=== PATIENT | male | born 1975 | race African-American/Black ===

== ENCOUNTER 2018-04-25 15:28 | Inpatient (IN) | payer SELFPAY ==
[~2018-04-25 15:28] MED LIST: Iopamidol 370 76% 100 ML VIAL ONE; Iopamidol 370 76% 50 ML VIAL FS ONE
[2018-04-25] MEDS ORDERED: Atropine Sulfate 1 mg/10 ml Syringe ONE (15:35)
[2018-04-25] MEDS ORDERED: DOPamine 400 MG/D5W 250 ML 0 ML ONE (15:35)
[2018-04-25] MEDS ORDERED: Adenosine 6 MG/2 ML VIAL ONE (16:04)
[2018-04-25] MEDS ORDERED: Nitroglycerin 0.4 MG TAB (25 Tab Bottle) SL PRN (16:26)
[2018-04-25] MEDS ORDERED: traMADol HCl 50 MG TAB PO PRN (16:26)
[2018-04-25] MEDS ORDERED: Morphine 4 MG/ML VIAL SLOW IVP PRN (16:26)
[2018-04-25] MEDS ORDERED: Acetaminophen/Codeine 30-300mg Tablet PO PRN (16:26)
[2018-04-25] MEDS ORDERED: Mag-Al 1200 mg/1200 mg/30 ML UDCUP PO PRN (16:26)
[2018-04-25] MEDS ORDERED: Zolpidem Tartrate 5 MG TAB PO PRN (16:26)
[2018-04-25] MEDS ORDERED: Milk Of Magnesia 30 ML UDCUP PO PRN (16:26)
[2018-04-25] MEDS ORDERED: Sodium Chloride 0.9% 1,000 ML IV SCH (16:30)
[2018-04-25 16:45] VITALS: BMI 28.8
--- NOTE | 2018-04-25 17:39 | HP ---
CHIEF COMPLAINT: Chest pain. HISTORY OF PRESENT ILLNESS: Mr. Love is a pleasant 43-year-old gentleman, who comes to the hospital air flighted from the [facility] ER for an inferior ST-elevation NE. He started having chest pain at 02:00 a.m. yesterday, presented to the [place] ER at 02:00 p.m., about 12 hours had gone by. His troponin was already at 11, but he was having ongoing chest pain 10/10 per his report with ST elevations in the inferior leads with reciprocal changes. He was air flighted to [facility] and taken immediately to the catheterization lab, where he was found to have an occluded left circumflex. This was wired and successfully stented with bare-metal stent. His pain improved immediately and he did well with the procedure. Angio-Seal was placed in his right femoral artery. He is having normal pain now. PAST MEDICAL HISTORY: None. SOCIAL HISTORY: Former smoker, smoked about half-a-pack a day for several years. He quit a month ago as his father recently of lung cancer. Social alcohol use. No drug use. FAMILY HISTORY: Mother of an NE at age 48. Father of lung cancer recently at age 65. He has 2 children and 1 grandkid, [address] on the way as well. PAST SURGICAL HISTORY: None. OUTPATIENT MEDICATIONS: None. ALLERGIES: NO KNOWN DRUG ALLERGIES. REVIEW OF SYSTEMS: A 12-point review of systems was done and was found to be negative unless stated in the history of present illness. PHYSICAL EXAMINATION: VITAL SIGNS: Temperature 97.2, pulse 80, respiratory rate 16, saturating 98% on 2 L nasal cannula. GENERAL: Awake, alert, oriented x3. No distress. HEENT: Normocephalic, atraumatic. NECK: Supple. LUNGS: Clear. CARDIOVASCULAR: S1 and S2. No S3 or S4. No murmurs. ABDOMEN: Soft. Positive bowel sounds. EXTREMITIES: No edema. SKIN: Warm and dry. LABORATORY DATA: Reviewed. DIAGNOSTIC DATA: EKG was reviewed. Chest x-ray was reviewed. ASSESSMENT AND PLAN: 1. Inferior ST-elevation myocardial infarction, status post bare-metal stenting to an LPL, big OM2 that goes all the way down to an LPL. Still residual disease and a bifurcating lesion, however, this is distal and a very small artery, not amenable to interventions. 2. Significant family history. PLAN: 1. Admit to ICU. 2. Brilinta, aspirin, and high-dose statin for now. 3. Beta john and SOL inhibitor depending on how blood pressure allows in the next two days. Borderline low at this time. 4. Echocardiogram pending. 5. Full code. 6. Disposition; pending clinical evolution. Job ID: [id number]
[2018-04-25 18:03] LABS: CKMB 4.2 ng/mL (0-6.6)
[2018-04-25 18:07] LABS: Troponin I 14.986 ng/mL (< 0.028)
[2018-04-25] MEDS: Atorvastatin Calcium 40 MG TAB PO SCH (20:08)
[2018-04-25] MEDS: TICAGRELOR 90 MG TABLET PO SCH (20:09)
[2018-04-25 23:04] LABS: CKMB 5.1 ng/mL (0-6.6)
[2018-04-25 23:06] LABS: Critical Call Chem Troponin I RESULT DECREASING; Troponin I 14.493 ng/mL (< 0.028)
[2018-04-26 05:36] LABS: #Lymphocytes 1.7 thou/uL (1.20-3.40); #Monocytes 1.3 thou/uL (0.11-0.59); #Neutrophils 8.2 thou/uL (1.40-6.50); %Basophils 0.2 % (0.0-1.0); %Eosinophils 0.2 % (0.0-10.0); %Lymphocytes 15.2 % (21.0-51.0); %Monocytes 11.8 % (0.0-10.0); %Neutrophils 72.8 % (42.0-75.0); Mean Corpuscular HGB CONC 33.8 g/dL (32.0-36.0); Mean Corpuscular Hemoglobin 31.2 pg (27.0-31.0); Mean Corpuscular Volume 92.5 fL (78.0-98.0); Mean Platelet Volume 6.9 fL (7.4-10.4); Platelet Count 452 thou/uL (130-400); RBC Distribution Width 12.7 % (11.5-14.5); Red Blood Cell (RBC) Count 4.47 mill/uL (4.70-6.10); White Blood Cell (WBC) Count 11.3 thou/uL (4.8-10.8)
[2018-04-26 06:10] LABS: Anion Gap 16 mmol/L (10-20); Chloride 98 mmol/L (98-107); Sodium 137 mmol/L (136-145)
[2018-04-26 06:13] LABS: ALT (SGPT) 15 U/L (8-55); AST (SGOT) 29 U/L (5-34); Albumin 3.6 g/dL (3.5-5.0); Alkaline Phosphatase 52 U/L (40-150); BUN (Urea Nitrogen) 9 mg/dL (8.9-20.6); Bilirubin, Total 1.4 mg/dL (0.2-1.2); Calc. Creatinine Clearance 130 mL/min (70-130); Calcium 9.3 mg/dL (7.8-10.44); Carbon Dioxide 25 mmol/L (22-29); Cardiac Risk 5.5 (Less than 4.5); Cholesterol 219 mg/dl (< 200 Desired); Estimated GFR-MDRD Greater than 90; Globulin 3.6 g/dL (2.4-3.5); Glucose 112 mg/dL (70-105); HDL Cholesterol 40 mg/dL (>60 Neg Risk); LDL Cholesterol, Calculated 141 mg/dL; Potassium 2.7 mmol/L (3.5-5.1); Protein, Total 7.2 g/dL (6.0-8.3); Triglycerides 188 mg/dL (Less than 150)
[2018-04-26 06:16] LABS: Free T4 (Free Thyroxine) 1.08 ng/dL (0.70-1.48)
[2018-04-26] MEDS: Potassium Chloride 20 MEQ TAB PO SCH ×2 (09:20→12:22)
[2018-04-26] MEDS: Aspirin Chewable 81 MG TAB PO SCH (09:26)
[2018-04-26] MEDS: TICAGRELOR 90 MG TABLET PO SCH ×2 (10:16→21:12)
--- NOTE | 2018-04-26 11:42 | PDOC.CTH ---
Cardiology Progress Note - Subjective Doing well. No chest pain. - Objective Vital Signs Temp Pulse Ox 04/26/18 08:00 99.2 F 97 04/26/18 07:00 99.2 F 04/26/18 04:00 98.5 F 04/26/18 00:00 98.6 F Weight 173 lb 4.533 oz 04/25/18 04/26/18 04/27/18 06:59 06:59 06:59 Intake Total 1557 300 Output Total 600 540 Balance 957 -240 - Physical Examination General/Neuro: alert & oriented x3, NAD Neck: no JVD present Lungs: CTA, unlabored respirations Heart: RRR Abdomen: NT/ND Extremities: other: (no edema) - Telemetry Telemetry Rhythm: NSR - Labs Result Diagrams: 04/26/18 04:32 04/26/18 04:32 Troponin/CKMB CK-MB (CK-2) 5.1 ng/mL (0-6.6) 04/25/18 22:33 Troponin I 14.493 ng/mL (< 0.028) H* 04/25/18 22:33 - Assessment/Plan 1. Inferior STEMI 2. Ischemic CM EF at 45%. 3. S/P BMS to LCx/OM2 PLAN: - Continue NANCI with brilinta and aspirin - Will start very low dose BB see if his BP will tolerate this. - No ACEI due to borderline low BP. - Continue high dose statin. - Replace K.
--- NOTE | 2018-04-26 12:54 | CON ---
DATE OF CONSULTATION: HISTORY OF PRESENT ILLNESS: Lei Love is a pleasant 43-year-old gentleman, who presented with chest pain to the ER. No prior history of any chest pain, shortness of breath, or cough. EKG showed ST-segment elevation in his anterior leads. PAST MEDICAL HISTORY: Otherwise, unremarkable . PAST SURGICAL HISTORY: None. SOCIAL HISTORY: Alcohol, minimal. Tobacco, half pack a day. 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 REVIEW OF SYSTEMS: Otherwise, unremarkable. FAMILY HISTORY: Unremarkable. PHYSICAL EXAMINATION: VITAL SIGNS: His post cath in the ICU, blood pressure 121/84, sats are 96% on room air, respirations 20, and temperature 99. CHEST: No wheezing or crackles. CARDIAC: Normal S1 and S2. No gallops. ABDOMEN: No masses. LABORATORY DATA: White count 11,000, H and H are 14 and 41, and platelet count is normal. Lytes are normal. Potassium 2.7. Troponin is elevated. BNP is normal. Cholesterol is elevated at 219, triglyceride 188. IMAGING DATA: Chest x-ray showed no acute infiltrates. IMPRESSION: 1. Acute coronary syndrome, status post cardiac cath with multiple stents. 2. Tobacco abuse. PLAN: Disposition as per Cardiology. Pulmonary/Critical Care will follow in the ICU. He is advised to refrain from smoking. This is a consultation note, 70 minutes, 50% direct patient care. Job ID: [id number]
--- NOTE | 2018-04-26 18:12 | EKG ---
Test Reason : Blood Pressure : / mmHG Vent. Rate : 090 BPM Atrial Rate : 090 BPM P-R Int : 138 ms QRS Dur : 072 ms QT Int : 368 ms P-R-T Axes : 038 017 035 degrees QTc Int : 450 ms Normal sinus rhythm Inferior infarct , possibly acute Lateral injury pattern * ACUTE OH * Abnormal ECG No previous ECGs available Confirmed by DR. Petty DIETZ ([id number]) on 04/26/2018 6:11:42 PM Referred By: LUISITO Confirmed By:DR. Petty DIETZ
--- NOTE | 2018-04-26 18:30 | EKG ---
Test Reason : Blood Pressure : / mmHG Vent. Rate : 094 BPM Atrial Rate : 094 BPM P-R Int : 140 ms QRS Dur : 078 ms QT Int : 362 ms P-R-T Axes : 037 017 052 degrees QTc Int : 452 ms Normal sinus rhythm Inferior infarct (cited on or before 25-APR-2018) Lateral injury pattern ACUTE OR / STEMI Abnormal ECG When compared with ECG of 25-APR-2018 17:47, (Unconfirmed) Serial changes of evolving Inferior infarct Present Confirmed by DR. Petty DIETZ ([id number]) on 04/26/2018 6:29:40 PM Referred By: LUISITO Confirmed By:DR. Petty DIETZ
[2018-04-26] MEDS: Atorvastatin Calcium 40 MG TAB PO SCH (21:11)
[2018-04-27 06:19] LABS: Anion Gap 14 mmol/L (10-20); BUN (Urea Nitrogen) 11 mg/dL (8.9-20.6); Calc. Creatinine Clearance 135 mL/min (70-130); Calcium 9.5 mg/dL (7.8-10.44); Carbon Dioxide 22 mmol/L (22-29); Chloride 104 mmol/L (98-107); Estimated GFR-MDRD Greater than 90; Glucose 97 mg/dL (70-105); Potassium 3.4 mmol/L (3.5-5.1); Sodium 137 mmol/L (136-145)
[2018-04-27 06:21] LABS: #Lymphocytes 1.7 thou/uL (1.20-3.40); #Neutrophils 6.4 thou/uL (1.40-6.50); %Basophils 0.2 % (0.0-1.0); %Eosinophils 0.4 % (0.0-10.0); %Lymphocytes 18.3 % (21.0-51.0); %Monocytes 10.9 % (0.0-10.0); %Neutrophils 70.1 % (42.0-75.0); Hemoglobin 14.2 g/dL (14.0-18.0); Mean Corpuscular HGB CONC 33.5 g/dL (32.0-36.0); Mean Corpuscular Hemoglobin 31.1 pg (27.0-31.0); Mean Corpuscular Volume 92.7 fL (78.0-98.0); Mean Platelet Volume 6.8 fL (7.4-10.4); Platelet Count 487 thou/uL (130-400); RBC Distribution Width 12.4 % (11.5-14.5); Red Blood Cell (RBC) Count 4.57 mill/uL (4.70-6.10); White Blood Cell (WBC) Count 9.1 thou/uL (4.8-10.8)
[2018-04-27] MEDS: Aspirin Chewable 81 MG TAB PO SCH (09:20)
[2018-04-27] MEDS: TICAGRELOR 90 MG TABLET PO SCH (09:20)
--- NOTE | 2018-04-27 09:41 | PRG ---
DATE OF SERVICE: 04/27/2018 SUBJECTIVE: Lei Love is a 43-year-old gentleman. This morning, no chest pain, no shortness of breath. OBJECTIVE: VITAL SIGNS: Blood pressure 170/84, sats 96, respiratory rate 20, pulse 80. CHEST: Decreased breath sounds. No wheezing. CARDIAC: Normal S1, S2. No gallops or masses. LABORATORY DATA: Lytes are normal. IMPRESSION: Status post myocardial infarction, emergent cardiac cath with multiple stents, inferior myocardial infarction, tobacco abuse. PLAN: Disposition as per Cardiology. Pulmonary will follow while in the ICU. Job ID: [id number]
--- NOTE | 2018-04-27 14:08 | DIS ---
DATE OF ADMISSION: 04/25/2018 DATE OF DISCHARGE: 04/27/2018 DISCHARGING PHYSICIAN: Stu Medina MD. PRIMARY DIAGNOSIS: 1. Inferolateral ST-elevation. 2. Ischemic cardiomyopathy, EF at 40% to 45%. HOSPITAL COURSE: Mr. Love is a 43-year-old gentleman,, who came to the hospital for chest pain. He was found to have an inferolateral ST-elevation DE. He was taken emergently to the catheterization lab, where he was found to have an occluded left circumflex. This was wired and stented successfully with a bare-metal stent. He was started on Brilinta and did well postoperatively. His pain was better almost immediately. He currently denies any chest pain, tightness, or pressure. No arrhythmias. Echocardiogram showed EF at 40% to 45%. without significant valvular abnormalities. He has been quite stable pain-free without any issues. He is stable for discharge at this time. We will plan on discharging home on Plavix. DISCHARGE MEDICATIONS: 1. Plavix 75 mg a day. 2. Aspirin 81 mg a day. 3. Nitroglycerin sublingual 0.4 mg p.r.n. chest pain. 4. Atorvastatin 80 mg at bedtime. 5. Lisinopril 2.5 mg half a tablet a day. 6. Metoprolol tartrate 25 mg half a tablet twice a day. FOLLOWUP APPOINTMENTS: 1. With myself in 1 month. 2. With primary care doctor in 2 weeks. Over 30 minutes was spent at bedside counseling for discharge. Job ID: [id number]
[2018-04-27 14:52] VITALS: TEMP 98.4
[2018-04-27 16:26] VITALS: BP 121/77
[2018-04-28] MEDS ORDERED: Lisinopril 2.5 MG TAB PO SCH (09:00)
[2018-04-28] MEDS ORDERED: Clopidogrel Bisulfate 75 MG TAB PO SCH (09:00)
== END 2018-04-27 15:25 | disposition home or self-care (01) | DRG 249 ==
LOC: ERS 15:28 → SDC 15:32 → CCU 16:52
PROVIDERS: ADMIT Internal Medicine Cardiovascular Disease; ATTEND Internal Medicine Cardiovascular Disease
PROC: 02703DZ Dilation of Coronary Artery, One Artery with Intraluminal Device, Percutaneous Approach (ICD-10-PCS; principal; 2018-04-25)
PROC: 4A023N7 Measurement of Cardiac Sampling and Pressure, Left Heart, Percutaneous Approach (ICD-10-PCS; 2018-04-25)
PROC: B2111ZZ Fluoroscopy of Multiple Coronary Arteries using Low Osmolar Contrast (ICD-10-PCS; 2018-04-25)
DX: I21.19 ST elevation (STEMI) myocardial infarction involving other coronary artery of inferior wall (principal); I25.5 Ischemic cardiomyopathy; F17.210 Nicotine dependence, cigarettes, uncomplicated
CPT/HCPCS: 36415; 80048; 80053; 80061; 82553; 83880; 84439; 84443; 85025; 85347; 92941; 93005; 93010; 93306; 93458; 93798; C1725; C1760; C1769; C1876; C1887; J0153; J0461; J1265; J2270; Q9967

== ENCOUNTER 2019-03-31 12:38 | Observation (INO) | payer OTHER, SELFPAY ==
[2019-03-31 13:47] LABS: #Eosinphils 0.1 thou/uL (0.0-0.7); #Lymphocytes 1.4 thou/uL (1.20-3.40); #Monocytes 0.5 thou/uL (0.11-0.59); #Neutrophils 2.2 thou/uL (1.40-6.50); %Basophils 1.1 % (0.0-1.0); %Eosinophils 1.3 % (0.0-10.0); %Lymphocytes 33.5 % (21.0-51.0); %Monocytes 12.3 % (0.0-10.0); %Neutrophils 51.8 % (42.0-75.0); Mean Corpuscular HGB CONC 36.1 g/dL (32.0-36.0); Mean Corpuscular Hemoglobin 32.2 pg (27.0-31.0); Mean Corpuscular Volume 89.4 fL (78.0-98.0); Mean Platelet Volume 7.3 fL (7.4-10.4); Platelet Count 293 thou/uL (130-400); RBC Distribution Width 12.3 % (11.5-14.5); Red Blood Cell (RBC) Count 4.34 mill/uL (4.70-6.10); White Blood Cell (WBC) Count 4.2 thou/uL (4.8-10.8)
--- NOTE | 2019-03-31 13:54 | RAD ---
Portable frontal chest radiograph: 03/31/2019 COMPARISON: 04/25/2018 HISTORY: Chest pain FINDINGS: Lungs are clear. Heart and mediastinal contours appear within normal limits. IMPRESSION: No acute findings.
[2019-03-31 14:09] LABS: Anion Gap 11 mmol/L (10-20); BUN (Urea Nitrogen) 11 mg/dL (8.9-20.6); Carbon Dioxide 29 mmol/L (22-29); Chloride 104 mmol/L (98-107); Potassium 3.9 mmol/L (3.5-5.1); Sodium 140 mmol/L (136-145)
[2019-03-31 14:10] LABS: ALT (SGPT) 16 U/L (8-55); AST (SGOT) 16 U/L (5-34); Albumin 4.2 g/dL (3.5-5.0); Alkaline Phosphatase 71 U/L (40-110); Bilirubin, Total 0.9 mg/dL (0.2-1.2); CK (CPK) 84 U/L (30-200); Calc. Creatinine Clearance 0 mL/min (70-130); Calcium 9.3 mg/dL (7.8-10.44); Estimated GFR-MDRD Greater than 90; Globulin 3.1 g/dL (2.4-3.5); Glucose 91 mg/dL (70-105); Lipase 20 U/L (8-78); Protein, Total 7.3 g/dL (6.0-8.3)
[2019-03-31] MEDS ORDERED: Nitroglycerin 2% Ointment 1 INCH/1 GM Packet ONE (15:07)
[2019-03-31] MEDS ORDERED: Nitroglycerin 0.4 MG TAB (25 Tab Bottle) SL PRN (16:21)
[2019-03-31] MEDS ORDERED: Lisinopril 5 MG TAB PO SCH (16:45)
[2019-03-31 17:48] VITALS: BMI 31.3
[2019-03-31 17:54] LABS: Troponin I Less than 0.010 ng/mL (< 0.028)
[2019-03-31] MEDS: Acetaminophen 325 MG TAB PO PRN (19:48)
[2019-03-31] MEDS: Heparin 5,000 UNITS/ML VIAL SC SCH (19:49)
--- NOTE | 2019-03-31 19:49 | PDOC.HHP ---
Hospitalist Results - Labs Result Diagrams: 03/31/19 13:36 03/31/19 13:36 Lab results: WBC 4.2 thou/uL (4.8-10.8) L 03/31/19 13:36 Hgb 14.0 g/dL (14.0-18.0) 03/31/19 13:36 Hct 38.8 % (42.0-52.0) L 03/31/19 13:36 MCV 89.4 fL (78.0-98.0) 03/31/19 13:36 Plt Count 293 thou/uL (130-400) 03/31/19 13:36 Neutrophils % 51.8 % (42.0-75.0) 03/31/19 13:36 Sodium 140 mmol/L (136-145) 03/31/19 13:36 Potassium 3.9 mmol/L (3.5-5.1) 03/31/19 13:36 Chloride 104 mmol/L (98-107) 03/31/19 13:36 Carbon Dioxide 29 mmol/L (22-29) 03/31/19 13:36 BUN 11 mg/dL (8.9-20.6) 03/31/19 13:36 Creatinine 0.87 mg/dL (0.7-1.3) 03/31/19 13:36 Glucose 91 mg/dL (70-105) 03/31/19 13:36 Calcium 9.3 mg/dL (7.8-10.44) 03/31/19 13:36 Total Bilirubin 0.9 mg/dL (0.2-1.2) 03/31/19 13:36 AST 16 U/L (5-34) 03/31/19 13:36 ALT 16 U/L (8-55) 03/31/19 13:36 Alkaline Phosphatase 71 U/L (40-110) 03/31/19 13:36 Creatine Kinase 84 U/L (30-200) 03/31/19 13:36 Troponin I Less than 0.010 ng/mL (< 0.028) 03/31/19 17:21 B-Natriuretic Peptide 72.9 pg/mL (0-100) 03/31/19 13:36 Serum Total Protein 7.3 g/dL (6.0-8.3) 03/31/19 13:36 Albumin 4.2 g/dL (3.5-5.0) 03/31/19 13:36 Lipase 20 U/L (8-78) 03/31/19 13:36 Hospitalist H&P A/P - Problem (1) Atypical chest pain Code(s): R07.89 - OTHER CHEST PAIN Status: Acute (2) Presence of stent in coronary artery in patient with coronary artery disease Code(s): I25.10 - ATHSCL HEART DISEASE OF [place] CORONARY ARTERY W/O ANG PCTRS; Z95.5 - PRESENCE OF CORONARY ANGIOPLASTY IMPLANT AND GRAFT Status: Acute - Plan Plan: #atypical chest pain -substernal pressure; however no associated with exertion and not relieved by rest/nitroglycerin; reproducible on exam -HD stable, EKG showing inferior q waves with no signs of new ischemia; trop x 1 negative #CAD s/p stent x 3 -on aspirin and plavix; lisinopril, beta john -Dr. Medina is patient's ledge man #dispo/PPX code: full code GI PPX: no indication DVT PPX: heparin subq Plan: -continue to trend trop; if chest pain becomes more typical, obtain another EKG -acetaminphen PRN musculoskeletal pain -continue home medications
[2019-03-31 20:33] LABS: Troponin I Less than 0.010 ng/mL (< 0.028)
[2019-03-31] MEDS ORDERED: Atorvastatin Calcium 40 MG TAB PO SCH (21:00)
--- NOTE | 2019-03-31 23:25 | PDOC.HHP ---
Hospitalist HPI - History of Present Illness chest pressure for 3 days History of Present Illness: 44yo M w/ MHx of CAD s/p stent placement x 3 presents to the ED from incarceration for chest pain. Started suddenly 3 days ago while at rest, substernal pressure, continuous, not relieved by nitroglycerin. Similar to chest pain he had during previous heart attack. Endorses adherence to medications except plavix and aspirin for 3 weeks that were restarted 3 days ago due to unavailability at facility. Has no other complaints and denies fever , fatigue, jaw or shoulder pain, shortness of breath, palpitations, pleuritic pain, cough, sputum production, strenuous exercise, substance abuse ED Course: In the ED, EKG showed inferior q waves but no signs of acute ischemia and troponin was negative x 1. He was admitted for continued observation considering his significant cardiac history Hospitalist ROS - Review of Systems Constitutional: denies: fever, chills, sweats, weakness, malaise, other Respiratory: denies: cough, dry, shortness of breath, hemoptysis, SOB with excertion, pleuritic pain, sputum, wheezing, other Cardiovascular: reports: chest pain. denies: palpitations, orthopnea, paroxysmal noc. dyspnea, edema, light headedness Gastrointestinal: denies: nausea, vomiting, abdominal pain, diarrhea, constipation, melena, hematochezia, other Genitourinary: denies: dysuria, frequency, incontinence, hematuria, retention, other Skin: denies: rash, lesions Neurological: denies: weakness, numbness, incoordination, change in speech, confusion, seizures, other - Medication Medications: Active Medications Generic Name Dose Route Start Last Admin Trade Name Freq PRN Reason Stop Dose Admin Acetaminophen 650 mg 03/31/19 16:18 03/31/19 19:48 Tylenol PO 650 mg Q4H PRN Administration Pain Atorvastatin Calcium 80 mg 03/31/19 21:00 03/31/19 19:48 Lipitor PO 80 mg HS GERARDO Administration Heparin Sodium (Porcine) 5,000 units 03/31/19 21:00 03/31/19 19:49 Heparin SC 5,000 units TID GERARDO Administration Hospitalist History - Past Medical History Source: patient Cardiac: reports: CAD, HTN - Past Surgical History 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 denies: diabetes mellitus - Social History Smoking Status: Former smoker (25 PY, stopped smoking 2 years ago) Alcohol: reports: Occassional Drugs: reports: none Living Situation: Other (incarcerated) Domestic Violence: Negative Activity level: independent ambulation - Exam General Appearance: NAD, awake alert Eye: PERRL, anicteric sclera ENT: normocephalic atraumatic, no oropharyngeal lesions, moist mucosa Neck: supple, symmetric, no JVD, no lymphadenopathy Heart: RRR, no murmur, no gallops, no rubs, normal peripheral pulses Heart - other findings: reproducible sternal and parasternal tenderness, no overlying skin lesion Respiratory: CTAB, no wheezes, no rales, no ronchi, normal chest expansion, no tachypnea, normal percussion Gastrointestinal: soft, non-tender, non-distended, normal bowel sounds, no palpable masses, no hepatomegaly, no splenomegaly, no bruit Extremities: no edema Skin: no lesions, no rashes Neurological: cranial nerve grossly intact, normal sensation to touch, no weakness, no focal deficits Musculoskeletal: normal tone, normal strength Psychiatric: normal affect, normal behavior, A&O x 3 Hospitalist Results - Labs Result Diagrams: 03/31/19 13:36 03/31/19 13:36 Lab results: WBC 4.2 thou/uL (4.8-10.8) L 03/31/19 13:36 Hgb 14.0 g/dL (14.0-18.0) 03/31/19 13:36 Hct 38.8 % (42.0-52.0) L 03/31/19 13:36 MCV 89.4 fL (78.0-98.0) 03/31/19 13:36 Plt Count 293 thou/uL (130-400) 03/31/19 13:36 Neutrophils % 51.8 % (42.0-75.0) 03/31/19 13:36 Sodium 140 mmol/L (136-145) 03/31/19 13:36 Potassium 3.9 mmol/L (3.5-5.1) 03/31/19 13:36 Chloride 104 mmol/L (98-107) 03/31/19 13:36 Carbon Dioxide 29 mmol/L (22-29) 03/31/19 13:36 BUN 11 mg/dL (8.9-20.6) 03/31/19 13:36 Creatinine 0.87 mg/dL (0.7-1.3) 03/31/19 13:36 Glucose 91 mg/dL (70-105) 03/31/19 13:36 Calcium 9.3 mg/dL (7.8-10.44) 03/31/19 13:36 Total Bilirubin 0.9 mg/dL (0.2-1.2) 03/31/19 13:36 AST 16 U/L (5-34) 03/31/19 13:36 ALT 16 U/L (8-55) 03/31/19 13:36 Alkaline Phosphatase 71 U/L (40-110) 03/31/19 13:36 Creatine Kinase 84 U/L (30-200) 03/31/19 13:36 Troponin I Less than 0.010 ng/mL (< 0.028) 03/31/19 20:02 B-Natriuretic Peptide 72.9 pg/mL (0-100) 03/31/19 13:36 Serum Total Protein 7.3 g/dL (6.0-8.3) 03/31/19 13:36 Albumin 4.2 g/dL (3.5-5.0) 03/31/19 13:36 Lipase 20 U/L (8-78) 03/31/19 13:36 - EKG Interpretation EKG: sinus rhythm, inferior q wave, no signs of acute ischemia Hospitalist H&P A/P - Problem (1) Atypical chest pain Code(s): R07.89 - OTHER CHEST PAIN Status: Acute (2) Presence of stent in coronary artery in patient with coronary artery disease Code(s): I25.10 - ATHSCL HEART DISEASE OF [place] CORONARY ARTERY W/O ANG PCTRS; Z95.5 - PRESENCE OF CORONARY ANGIOPLASTY IMPLANT AND GRAFT Status: Acute - Plan Plan: (1) Atypical chest pain Code(s): R07.89 - OTHER CHEST PAIN Status: Acute (2) Presence of stent in coronary artery in patient with coronary artery disease Code(s): I25.10 - ATHSCL HEART DISEASE OF [place] CORONARY ARTERY W/O ANG PCTRS; Z95.5 - PRESENCE OF CORONARY ANGIOPLASTY IMPLANT AND GRAFT Status: Acute - Plan Plan: #atypical chest pain -substernal pressure; however no associated with exertion and not relieved by rest/nitroglycerin; reproducible on exam -HD stable, EKG showing inferior q waves with no signs of new ischemia; trop x 1 negative #CAD s/p stent x 3 -on aspirin and plavix; lisinopril, beta john -Dr. Medina is patient's computator #dispo/PPX code: full code GI PPX: no indication DVT PPX: heparin subq Plan: -continue to trend trop; if chest pain becomes more typical, obtain another EKG -acetaminphen PRN musculoskeletal pain -continue home medications
[2019-04-01] MEDS: Acetaminophen 325 MG TAB PO PRN
[2019-04-01 04:59] LABS: Anion Gap 11 mmol/L (10-20); BUN (Urea Nitrogen) 14 mg/dL (8.9-20.6); Calc. Creatinine Clearance 121 mL/min (70-130); Calcium 8.9 mg/dL (7.8-10.44); Carbon Dioxide 28 mmol/L (22-29); Chloride 104 mmol/L (98-107); Estimated GFR-MDRD Greater than 90; Glucose 102 mg/dL (70-105); Potassium 3.6 mmol/L (3.5-5.1); Sodium 139 mmol/L (136-145)
[2019-04-01] MEDS ORDERED: Furosemide 40 MG TAB PO SCH (07:30)
[2019-04-01] MEDS ORDERED: Lisinopril 5 MG TAB PO SCH (09:00)
[2019-04-01] MEDS ORDERED: Aspirin Chewable 81 MG TAB PO SCH (09:00)
[2019-04-01] MEDS ORDERED: Clopidogrel Bisulfate 75 MG TAB PO SCH (09:00)
[2019-04-01] MEDS ORDERED: Lisinopril 2.5 MG TAB PO SCH (09:00)
[2019-04-01 11:28] VITALS: BP 134/76; TEMP 98.1
--- NOTE | 2019-04-01 11:37 | DIS ---
DATE OF ADMISSION: 03/31/2019 DATE OF DISCHARGE: 04/01/2019 The patient from [facility]. FINAL DIAGNOSES: 1. Musculoskeletal chest wall pain. 2. Coronary artery disease. 3. Hypertension. 4. Dyslipidemia. DISCHARGE MEDICATIONS: Discharged on regular medicines; 1. Protonix 40 mg a day. 2. Metoprolol 12.5 mg b.i.d. 3. Plavix 75 mg a day. 4. Lipitor 80 mg a day. 5. Lisinopril 5 mg a day. 6. Aspirin 81 mg a day. ALLERGIES: NO KNOWN DRUG ALLERGIES. CODE STATUS: Full. PENDING AT TIME OF DISCHARGE: Nothing. DIET: Heart healthy. HOSPITAL COURSE: The patient referred from alf to the emergency room with continuous chest pain for three days, now relieved with nitroglycerin. No associated symptoms. In fact, if you gently manipulate his left parasternal area about T3 or T4, exactly reproduce his pain. His EKG was unrevealing for acute changes. Laboratory: Metabolic profile normal. Troponin is less than 0.01 x 3. I have examined him. His vital signs are stable. His cardiorespiratory exam is unremarkable. His chest wall is tender to palpation. He is being discharged back to the alf. No consultations. No procedures. Followup in the alf in 3 days. Job ID: [id number]
[2019-04-01] MEDS: Heparin 5,000 UNITS/ML VIAL SC SCH (12:29)
--- NOTE | 2019-04-01 16:08 | EKG ---
Test Reason : ROUTINE Blood Pressure : / mmHG Vent. Rate : 062 BPM Atrial Rate : 062 BPM P-R Int : 178 ms QRS Dur : 080 ms QT Int : 386 ms P-R-T Axes : 051 014 -14 degrees QTc Int : 391 ms Normal sinus rhythm ST elevation, consider early repolarization, pericarditis, or injury Inferior infarct , age undetermined Abnormal ECG Confirmed by ANTELMO TSE ([id number]) on 04/01/2019 4:08:12 PM Referred By: Confirmed By:ANTELMO TSE
== END 2019-04-01 12:37 ==
LOC: ERS 12:38 → EEVIPCON 12:38 → 2SW 17:44
PROVIDERS: ADMIT Emergency Medicine; ATTEND Emergency Medicine
DX: R07.89 Other chest pain (principal); I25.10 Atherosclerotic heart disease of native coronary artery without angina pectoris; I10 Essential (primary) hypertension; E78.5 Hyperlipidemia, unspecified; I25.2 Old myocardial infarction; Z79.02 Long term (current) use of antithrombotics/antiplatelets; Z79.82 Long term (current) use of aspirin; Z79.899 Other long term (current) drug therapy; Z95.5 Presence of coronary angioplasty implant and graft; Z87.891 Personal history of nicotine dependence
CPT/HCPCS: 36415; 71045; 80048; 80053; 82550; 83690; 83880; 84484; 85025; 93005; 93010; 94760; 96372; G0378; J1644

== ENCOUNTER 2021-06-04 13:24 | Outpatient (CLI) | payer OTHER, MEDICAID | END 2021-06-04 13:25 | disposition home or self-care (01) | LOC: MRI 13:24 | PROVIDERS: ATTEND Family Medicine | DX: M47.26 Other spondylosis with radiculopathy, lumbar region (principal) | CPT/HCPCS: 72148 ==

== ENCOUNTER 2023-08-12 11:13 | Emergency (ER) | payer OTHER ==
[2023-08-12] MEDS ORDERED: Acetaminophen 500 MG TAB ONE (11:36)
== END 2023-08-12 12:08 | disposition home or self-care (01) ==
LOC: ERS 11:13
DX: S39.012A Strain of muscle, fascia and tendon of lower back, initial encounter (principal); I10 Essential (primary) hypertension; E78.5 Hyperlipidemia, unspecified; I25.2 Old myocardial infarction; V59.9XXA Occupant (driver) (passenger) of pick-up truck or van injured in unspecified traffic accident, initial encounter; W22.12XA Striking against or struck by front passenger side automobile airbag, initial encounter; Y92.481 Parking lot as the place of occurrence of the external cause; Z87.891 Personal history of nicotine dependence; Z79.899 Other long term (current) drug therapy
CPT/HCPCS: 72100